=== PATIENT | female | born 1975 | race Caucasian/White ===

== ENCOUNTER 2016-08-24 13:32 | Emergency (ER) | payer MEDICAID, OTHER ==
[~2016-08-24] VITALS: Ht 160 cm; Wt 75.0 kg
[~2016-08-24 13:32] MED LIST: IBUP-1542 PO
[2016-08-24 13:42] VITALS: Ht 160 cm; Wt 75.0 kg
[2016-08-24] MEDS ORDERED: IBUP800T25 PO (16:25)
[2016-08-24] MEDS ORDERED: IBUPROFEN 800 MG TAB PO ONE (16:30)
--- NOTE | 2016-08-24 16:33 | ERD ---
ER Documentation Chief Complaint Date/Time DATE: 08/24/16 TIME: 16:30 Chief Complaint Sent from clinic for eval Fx right foot HPI 41-year-old female sent to the emergency room for evaluation of her right ankle and foot injury. The patient went to the clinic today and was told she might have a fracture. She was not immobilized, not splinted. She was sent to the ER with her images. Patient states an ankle inversion injury approximately 1 week ago. Moderate pain just inferior to the lateral malleolus of the right ankle. The patient has been ambulatory. Pain is moderate, throbbing, worse with touch. ROS All systems reviewed and are negative except as per history of present illness. Medications Home Meds Active Scripts Ibuprofen* (Motrin*) 800 Mg Tab, 800 MG PO Q6H Y for PAIN AND OR ELEVATED TEMP, #30 TAB Prov:AUGUST LIANG MD 08/24/16 Ibuprofen* (Ibuprofen*) 600 Mg Tablet, 600 MG PO Q6, #20 TAB Prov:MARIAN LEAVITT MD 12/30/14 Allergies Allergies: Coded Allergies: No Known Allergy (Verified , 12/30/14) PMhx/Soc Medical and Surgical Hx: pt denies Medical Hx, pt denies Surgical Hx Hx Alcohol Use: No Hx Substance Use: No Hx Tobacco Use: No Physical Exam Vitals Vital Signs Date Time Temp Pulse Resp B/P Pulse Ox O2 Delivery O2 Flow Rate FiO2 08/24/16 13:42 99.2 102 20 137/84 98 Physical Exam General: Well developed, well nourished, no acute distress Head: Normocephalic, atraumatic. Eyes: EOM intact ENT: Moist mucous membranes Neck: Full ROM Respiratory: No respiratory distress Cardiovascular: Good capillary refil Abdominal: Nondistended : Deferred MSK: Right ankle with soft tissue swelling just inferior to the lateral malleolus. No tenderness of the midfoot at the base of the fifth metatarsal bone, full active and passive range of motion, 2+ dorsalis pedis and posterior tibial pulses. No significant ligamentous instability. No focal bony abnormalities. Neurologic: Alert and oriented, moving all extremities, normal speech, steady gait Skin: No rash Psych: Normal mood Results 24 hrs Current Medications Medications (Trade) Dose Ordered Sig/Ariana Route PRN Reason Start Time Stop Time Status Last Admin Dose Admin Ibuprofen (Motrin) 800 mg ONCE ONCE PO 08/24/16 16:30 08/24/16 16:31 08/24/16 16:18 Procedures/MDM EKG, MONITORS, & DIAGNOSTIC IMAGING: X-ray right ankle: I reviewed and interpreted multiple views of the x-ray Bones: No evidence of acute fracture dislocation or subluxation Soft tissue: No evidence of foreign body Os peroneum noted X-ray right foot: I reviewed and interpreted multiple views of the x-ray Bones: No evidence of acute fracture dislocation or subluxation Soft tissue: No evidence of foreign body Os peroneum noted PROCEDURES: Splint Application Note: Splint type: Vipin wrap Extremity: Right ankle Indication: Right ankle sprain The patient was consented at bedside prior to splint application and states understanding of risks, benefits, and alternatives. The patient was neurovascularly intact prior to and status post application of the splint. The patient tolerated the procedure well and there were no complications. MEDICAL DECISION MAKING: The patient brought her images. I reviewed the images along with my radiologist. The patient has an os peroneum however no evidence of acute fracture. The patient's clinical exam is consistent with a sprain of the ATF. The patient has no evidence of fractures. The patient has been ambulatory for 1 week. She is otherwise neurologically intact. I discussed rest, ice, elevation, compression. Patient placed in an Vipin wrap and given crutches. Range of motion exercises discussed, weightbearing as tolerated. The patient is to follow-up with an orthopedic surgeon as an outpatient within 1 week. I attempted to contact the clinic with no success. I kept the patient and/or family informed of laboratory and diagnostic imaging results throughout the emergency room course. DISPOSITION PLAN: We discussed follow up with the patient's primary care doctor within 24 to 48 hours as needed. We also discussed return to the emergency room for worsening symptoms or worsening condition. Outpatient referral: Orthopedic surgeon Dr. Mejia Discharge Medications: Motrin Departure Diagnosis: Primary Impression: Ankle sprain Encounter type: initial encounter Involved ligament of ankle: tibiofibular ligament Laterality: right Qualified Code: S93.431A - Sprain of tibiofibular ligament of right ankle, initial encounter Condition: Stable Patient Instructions: Self-Care for Strains and Sprains Referrals: [facility] () Usted se whittaker hecho un examen mdico de control que le indica que no est en guillermina condicin que requiera tratamiento urgente en el Departamento de Emergencia. Un estudio ms profundo y el tratamiento de abbott condicin pueden esperar sin ningn riesgo hasta que usted sea atendida/o en el consultorio de abbott mdico o guillermina cl madonna. Es responsabilidad suya arreglar guillermina dex para el seguimiento del pito. MANEJO DE CONDICIONES NO URGENTES EN EL FUTURO 1) Si usted tiene un mdico de atencin primaria: Usted debera llamar a abbott mdico de atencin primaria antes de venir al departamento de emergencia. Despus de las horas de consultorio, abbott doctor o abbott asociado/a est disponible por telfono. El mdico o enfermero de ami en el servicio telefnico puede asesorarle por rachel medio para atender el problema, o pito contrario se puede programar guillermina dex. 2) Si usted no tiene un mdico de atencin primaria: Llame al mdico o clnica de referencia que aparece abajo irasema las horas de consultorio para hacer guillermina dex para que le vean. CLINICAS: [facility] [phone] [facility] [phone] [address] [facility] [phone] [facility] [phone] [address] [place] [id number] [phone] [facility]. [phone] [address] [facility] . [facility] () Usted se whittaker hecho un examen mdico de control que le indica que no est en guillermina condicin que requiera tratamiento urgente en el Departamento de Emergencia. Un estudio ms profundo y el tratamiento de abbott condicin pueden esperar sin ningn riesgo hasta que usted sea atendida/o en el consultorio de abbott mdico o guillermina cl madonna. Es responsabilidad suya arreglar guillermina dex para el seguimiento del pito. MANEJO DE CONDICIONES NO URGENTES EN EL FUTURO 1) Si usted tiene un mdico de atencin primaria: Usted debera llamar a abbott mdico de atencin primaria antes de venir al departamento de emergencia. Despus de las horas de consultorio, abbott doctor o abbott asociado/a est disponible por telfono. El mdico o enfermero de ami en el servicio telefnico puede asesorarle por rachel medio para atender el problema, o pito contrario se puede programar guillermina dex. 2) Si usted no tiene un mdico de atencin primaria: Llame al mdico o condado institucions de referencia que aparece abajo irasema las horas de consultorio para hacer guillermina dex para que le vean. SI USTED NO PUEDE PAGAR PARA GENEVA UN MEDICO puede ir a: [facility] [address] [place] [address] [facility] [address] [place] [address] [facility] [address] [place] [address] [facility] [address] [place] [address] [facility] 7 a.m.- 11 p.m. Every Day of the Week NO APPOINTMENT OR AUTHORIZATION NEEDED Additional Instructions: Call your primary care doctor TOMORROW for an appointment during the next 1 WEEK.Tell the church secretary that you were referred from this facility.See the doctor sooner or return here if your condition worsens before your appointment time. AUGUST LIANG MD Aug 24, 2016 16:33
== END 2016-08-24 17:06 | disposition home or self-care (01) ==
LOC: FTE 13:32
DX: S93.431A Sprain of tibiofibular ligament of right ankle, initial encounter (principal); X50.9XXA Other and unspecified overexertion or strenuous movements or postures, initial encounter; Y92.9 Unspecified place or not applicable
CPT/HCPCS: Z7502; Z7610; 99283

== ENCOUNTER 2018-08-26 09:56 | Emergency (ER) | payer OTHER ==
[~2018-08-26] VITALS: Ht 172.7 cm; Wt 71.0 kg
[~2018-08-26 09:56] MED LIST changes: +IBUP800T48 PO
[2018-08-26 09:58] VITALS: Ht 172.7 cm; Wt 71.0 kg
[2018-08-26 13:45] VITALS: BP 106/65; PULSE 74; RESP 18
--- NOTE | 2018-08-26 15:25 | ERD ---
ER Documentation Chief Complaint Chief Complaint Complains of Vag bleed and 6 weeks HPI 33-year-old female presenting with vaginal bleeding times 1 day. Patient has no clots. Generalized cramping but no localized pain. Does not recall her last LMP. . Denies medical problems. NKDA. Surgical history denies. So cial history denies ROS All systems reviewed and are negative except as per history of present illness. Medications Home Meds Active Scripts Ibuprofen* (Motrin*) 800 Mg Tab, 800 MG PO Q6H PRN for PAIN AND OR ELEVATED TEMP, #30 TAB Prov:AUGUST LIANG MD 08/24/16 Ibuprofen* (Ibuprofen*) 600 Mg Tablet, 600 MG PO Q6, #20 TAB Prov:MARIAN LEAVITT MD 12/30/14 Allergies Allergies: Coded Allergies: No Known Allergy (Verified , 12/30/14) PMhx/Soc Medical and Surgical Hx: pt denies Medical Hx, pt denies Surgical Hx Hx Alcohol Use: No Hx Substance Use: No Hx Tobacco Use: No Smoking Status: Never smoker FmHx Family History: No diabetes, No coronary disease, No other Physical Exam Vitals Vital Signs Date Temp Pulse Resp B/P (MAP) Pulse Ox O2 O2 Flow FiO2 Time Delivery Rate 08/26/18 74 18 106/65 100 Room Air 13:45 (79) 08/26/18 98.6 60 20 111/63 100 09:58 (79) Physical Exam GENERAL: The patient is well-appearing, well-nourished, in no acute distress CHEST: Clear to auscultation bilaterally. There are no rales, wheezes or rhonchi. HEART: Regular rate and rhythm. No murmurs, clicks, rubs or gallops. ABDOMEN:Soft, nontender and nondistended. Good bowel sounds. No rebound or guarding. No gross peritonitis. No gross organomegaly or masses. BACK: No midline or flank tenderness. Result Diagram: 08/26/18 1040 Results 24 hrs Laboratory Tests Test 08/26/18 10:40 White Blood Count 6.1 10^3/ul Red Blood Count 4.35 10^6/ul Hemoglobin 13.8 g/dl Hematocrit 42.2 % Mean Corpuscular Volume 97.0 fl Mean Corpuscular Hemoglobin 31.7 pg Mean Corpuscular Hemoglobin Concent 32.7 g/dl Red Cell Distribution Width 13.2 % Platelet Count 192 10^3/UL Mean Platelet Volume 12.0 fl Immature Granulocytes % 0.300 % Neutrophils % 46.3 % Lymphocytes % 40.0 % Monocytes % 8.5 % Eosinophils % 4.2 % Basophils % 0.7 % Nucleated Red Blood Cells % 0.0 /100WBC Immature Granulocytes # 0.020 10^3/ul Neutrophils # 2.8 10^3/ul Lymphocytes # 2.5 10^3/ul Monocytes # 0.5 10^3/ul Eosinophils # 0.3 10^3/ul Basophils # 0.0 10^3/ul Nucleated Red Blood Cells # 0.0 10^3/ul Urine Color STRAW Urine Clarity SLIGHTLY CLOUDY Urine pH 7.0 Urine Specific [place] 1.005 Urine Ketones NEGATIVE mg/dL Urine Nitrite NEGATIVE mg/dL Urine Bilirubin NEGATIVE mg/dL Urine Urobilinogen NEGATIVE mg/dL Urine Leukocyte Esterase NEGATIVE [place]/ul Urine Microscopic RBC 1 /HPF Urine Microscopic WBC 3 /HPF Urine Squamous Epithelial Cells FEW /HPF Urine Bacteria FEW /HPF Urine Hemoglobin 2+ mg/dL Urine Glucose NEGATIVE mg/dL Urine Total Protein NEGATIVE mg/dl Beta HCG, Quantitative 44178.0 mIU/ml Procedures/MDM DIAGNOSTIC IMAGING REPORT Patient: ANDRY CARR : 1975 Age: 43 Sex: F [id number] DOS: 08/26/18 1028 Ordering MD: SAM ELLIS PA-C Location: [facility] Room/Bed: PROCEDURE: OB Ultrasound. CLINICAL INDICATION: Positive test. Vaginal bleeding. Unknown dates. TECHNIQUE: Ultrasound of the pelvis was performed with transabdominal and transvaginal sonography in the axial and sagittal planes. COMPARISON: No prior study is available for comparison. FINDINGS: There is a single intrauterine gestational sac-like structure. pole and yolk sac are not visualized. Mean sac diameter is 1.87 cm indicating a gestational age of 6 weeks 6 days and an ERNIE of 04/15/2019. There is extensive multifocal subchorionic hemorrhage. There is no uterine enlargement or mass. The uterus measures 7.7 x 5.4 x 6.3 cm. The right ovary appears normal measuring 3.4 x 1.7 x 1.2 cm. The left ovary appears normal measuring 1.9 x 2.5 x 3.2 cm. Color Doppler and pulsed Doppler sonography demonstrate normal flow to the ovaries. There is no other pelvic mass or free fluid. IMPRESSION: 1. Small sac-like structure in the endometrial cavity may represent an early intrauterine . 2. Estimated gestational age by mean sac diameter is 6 weeks 6 days.. 3. Without visualizing a yolk sac or embryo, a definitive diagnosis of intrauterine cannot be made and, therefore, ectopic cannot be completely excluded but is extremely unlikely. Furthermore, viability cannot be established. Recommend correlation with serial serum beta HCG and follow-up ultrasound in 10 days or earlier if clinically warranted. MDM: 43-year-old female presenting with vaginal bleeding. I have low suspicion for ectopic however cannot completely exclude is a incomplete is noted on pelvic ultrasound. Patient does not require RhoGam injection as she is Rh+. Urine is negative. Patient is recommended to return to return in 2 days for close follow-up. Patient is told symptoms change or worsen to return immediately to the ER. Patient is at risk for miscarriage as she has been having vaginal bleeding in . All questions answered at discharge Departure Diagnosis: Primary Impression: Vaginal bleeding Condition: Stable Patient Instructions: Vaginal Bleed in Referrals: EMPLOYEE RELATIONS REPRESENTATIVE [place] [address] [facility] [address] [place], [place] [id number] OFFICE FAX PEARL CUE[facility]ASN[facility] [address] [place], [place] [id number] [facility] [address] [place] [address] [facility] [address] [facility], [address], [facility] [address] [address] [address] [place] [address] [facility] [address] [place] [address] [address] [facility] [id number] - DARY GARCIA [address], [place] [address] [address] OVALLE, [place] [address] [facility] [address], [place] [address] DR NUGENT, [facility] [address] [place] [address] Additional Instructions: FOLLOW UP WITH YOUR PRIMARY CARE PHYSICIAN TOMORROW.Return to this facility if you are not improving as expected. TORSTEN ELLIS PA-C Aug 26, 2018 15:25
== END 2018-08-26 13:47 | disposition home or self-care (01) ==
LOC: FTE 09:56
DX: O20.9 Hemorrhage in early pregnancy, unspecified (principal); R10.2 Pelvic and perineal pain; Z3A.01 Less than 8 weeks gestation of pregnancy
CPT/HCPCS: 36415; 76801; 76817; 81001; 84702; 85025; 86900; 86901; Z7502

== ENCOUNTER 2019-02-23 18:58 | Emergency (ER) | payer OTHER ==
[~2019-02-23] VITALS: Ht 162.6 cm; Wt 72.8 kg
[~2019-02-23 18:58] MED LIST changes: +ACET325T33 PO; +AZIT250T PO; +PRED20TA PO
[2019-02-23 19:00] VITALS: BP 131/75; PULSE 76; RESP 18; Ht 162.6 cm; Wt 72.8 kg
[2019-02-23] MEDS ORDERED: KETOROLAC 30 MG INJ IM STA (20:22)
== END 2019-02-23 21:02 | disposition home or self-care (01) ==
LOC: FTE 18:58
DX: R50.9 Fever, unspecified (principal); R05 Cough
CPT/HCPCS: 81025; 96372; J1885; Z7502